=== PATIENT | female | born 1935 | race Caucasian/White ===

== ENCOUNTER 2016-06-21 08:33 | Outpatient (CLI) | payer MEDICARE ==
--- NOTE | 2016-06-21 11:54 | Fluoroscopy Report ---
MODIFIED BARIUM SWALLOW Findings: Fluoroscopy was provided by the radiologist for speech therapy to assess the swallowing mechanism. Please refer to the formal report by speech therapy. Impression: Successful modified barium swallow.
== END 2016-06-21 08:34 | disposition home or self-care (01) ==
LOC: PT 08:33
PROVIDERS: ATTEND Internal Medicine Critical Care Medicine
DX: R13.12 Dysphagia, oropharyngeal phase (principal)
CPT/HCPCS: 74230; 92611; G8996; G8997; G8998

== ENCOUNTER 2016-07-24 13:53 | Outpatient (CLI) | payer MEDICARE ==
--- NOTE | 2016-07-25 07:54 | Cat Scan Report ---
CT CHEST WITHOUT CONTRAST: HISTORY: Chronic right, shortness of breath. TECHNIQUE: Helical CT with sagittal and coronal reformatted images. FINDINGS: Compared to 09/30/15. There is mild cardiomegaly. No pericardial effusion is appreciated. Diffuse coronary artery calcifications. The mediastinal vessels trachea and esophagus are within normal limits. No mediastinal adenopathy has developed. Mild fibrotic changes are suspected in the lower lung zones. There appears to be scarring and volume loss in the middle lobe, lingula and portions of both lower lobes. This has improved slightly since 09/30/15 exam. The upper lung zones remain clear. There may be minimal emphysematous changes. No defined mass, pleural effusion or pneumothorax. The thoracic cage is intact. There is osteopenia and multilevel thoracic spondylosis. IMPRESSION: Mild cardiomegaly. Mild fibrotic changes are suspected in the lower lung zones. There are areas of atelectasis or scarring in the lower lung zones have improved slightly since the previous exam. No acute cardiopulmonary process is appreciated.
== END 2016-07-24 13:54 | disposition home or self-care (01) ==
LOC: CT 13:53
PROVIDERS: ATTEND Specialist
DX: J96.11 Chronic respiratory failure with hypoxia (principal); I25.10 Atherosclerotic heart disease of native coronary artery without angina pectoris; I51.7 Cardiomegaly; M85.80 Other specified disorders of bone density and structure, unspecified site; M47.894 Other spondylosis, thoracic region
CPT/HCPCS: 36415; 71250; 82565; 84520

== ENCOUNTER 2017-02-20 16:39 | Emergency (ER) | payer MEDICARE ==
[2017-02-20 17:45] VITALS: BP 129/58
[2017-02-20 18:22] LABS: Basophils % (Auto) 0.5 % (0.0-1.8); Eosinophils % (Auto) 0.8 % (0.0-4.3); Hematocrit 32.3 % (30.3-42.9); Hemoglobin 10.7 gm/dl (10.1-14.3); Mean Corpuscular HGB Conc 33 % (30-34); Mean Corpuscular Volume 73 fl (79-97); Platelet Count 100 K/mm3 (140-440); Red Cell Distribution Width 18.6 % (13.2-15.2); White Blood Count 8.5 K/mm3 (4.5-11.0)
[2017-02-20 18:26] LABS: Mean Corpuscular Hemoglobin 24 pg (28-32)
--- NOTE | 2017-02-20 18:30 | Emergency Department Report ---
HPI - General Chief Complaint: Medical Clearance Time Seen by Provider: 02/20/17 17:48 - HPI HPI: This is a 81-year-old female presents to the emergency department via EMS with complaint of weakness, dizziness and some hypotension. The patient completed her dialysis and her was driving her home when she started having the symptoms. He pulled over and called EMS. EMS found the blood pressure be in normal at that time and she didn't receive any other treatment prior to presentation. She has a past medical history of diabetes, coronary artery disease, hypertension and end-stage renal disease on dialysis Saturday, , Saturday. ED Past Medical Hx - Past Medical History Hx Hypertension: Yes Hx Heart Attack/AMI: Yes Hx Diabetes: Yes Hx Renal Disease: Yes (Dialysis MWF) - Surgical History Hx Coronary Stent: Yes (Status post cardiac cath, 12/24/2014 stent to distal left main) Additional Surgical History: UNKNOWN - Social History Smoking Status: Never Smoker Substance Use Type: None - Medications Home Medications: Home Medications Medication Instructions Recorded Confirmed Last Taken Type Aspirin EC [Aspirin Enteric Coated 81 mg PO QDAY 09/14/14 09/30/15 09/29/15 History TAB] hydrALAZINE [Apresoline TAB] 25 mg PO BID #60 tablet 12/27/14 09/30/15 09/29/15 Rx AtorvaSTATin [Lipitor] 10 mg PO QHS 09/30/15 09/30/15 09/29/15 History Calcium Acetate [Phoslo] 2,001 mg PO TID 09/30/15 09/30/15 09/29/15 History Clopidogrel [Plavix] 75 mg PO QDAY 09/30/15 09/30/15 09/29/15 History Amoxicillin/K Clav Tab [Augmentin 1 tab PO Q12HR #10 tab 10/04/15 Unknown Rx 875 mg] Carvedilol [Coreg] 3.125 mg PO BID #60 tablet 10/04/15 Unknown Rx Sitagliptin Phosphate [Januvia] 50 mg PO QDAY #30 tablet 10/04/15 Unknown Rx ED Review of Systems ROS: Stated complaint: GENERAL WEAKNESS/DIZZY Other details as noted in HPI Comment: All other systems reviewed and negative Constitutional: weakness. denies: fever Eyes: denies: eye pain, eye discharge, vision change ENT: denies: ear pain, throat pain Respiratory: denies: cough, shortness of breath, wheezing Cardiovascular: denies: chest pain, palpitations Gastrointestinal: denies: abdominal pain, nausea, diarrhea Genitourinary: denies: urgency, dysuria, discharge Musculoskeletal: denies: back pain, joint swelling, arthralgia Skin: denies: rash, lesions Neurological: weakness, other (dizziness). denies: headache Physical Exam - Physical Exam Vital Signs: Vital Signs 02/20/17 02/20/17 02/20/17 17:06 17:08 17:44 Temperature 98.1 F Pulse Rate 70 73 Respiratory 20 15 Rate Blood Pressure 154/58 129/58 [Left] O2 Sat by Pulse 100 100 100 Oximetry Physical Exam: GENERAL: The patient is well-developed well-nourished. HENT: Normocephalic. Atraumatic. Patient has moist mucous membranes. EYES: Extraocular motions are intact. Patient is blind. NECK: Supple. Trachea is midline. CHEST/LUNGS: Clear to auscultation. There is no respiratory distress noted. HEART/CARDIOVASCULAR: Regular. There is no tachycardia. There is no gallop rub or murmur. ABDOMEN: Abdomen is soft, nontender. Patient has normal bowel sounds. There is no abdominal distention. SKIN: Skin is warm and dry. NEURO: The patient is awake, alert. The patient is cooperative. The patient has no acute focal neurologic deficits. MUSCULOSKELETAL: There is no tenderness or deformity. There is no limitation range of motion. There is no evidence of acute injury. ED Course Vital Signs 02/20/17 02/20/17 02/20/17 17:06 17:08 17:44 Temperature 98.1 F Pulse Rate 70 73 Respiratory 20 15 Rate Blood Pressure 154/58 129/58 [Left] O2 Sat by Pulse 100 100 100 Oximetry ED Medical Decision Making - Lab Data Result diagrams: 02/20/17 18:00 02/20/17 18:00 - EKG Data -: EKG Interpreted by Me EKG shows normal: sinus rhythm, axis, intervals, QRS complexes (RBBB), ST-T waves Rate: normal - EKG Data When compared to previous EKG there are: no significant change Interpretation: unchanged when compared t (12/20/11) - Radiology Data Radiology results: report reviewed, image reviewed interpreted by me: Chest x-ray does not show any acute process. There are no pleural effusions, obvious pneumonia and there is no pneumothorax. EXAM: CT HEAD/BRAIN WO CON HISTORY: Dizziness, weak TECHNIQUE: Contiguous axial images of the head were obtained without the use of intravenous contrast. PRIORS: None. FINDINGS: There is encephalomalacia of the left frontal lobe consistent with an old infarct. There is a very small lacunar infarct in the right basal ganglia. There is no evidence of acute infarct or intracranial hemorrhage. There is no mass lesion or mass effect. There are no abnormal extra-axial fluid collections. The ventricles and sulci are prominent consistent with generalized loss of brain substance, appropriate for age. There is deep white matter lucency consistent with chronic microvascular ischemic disease. There is advanced atherosclerotic calcification in the bilateral vertebral arteries and bilateral supraclinoid internal carotid arteries. The visualized skull and orbits are unremarkable. The visualized paranasal sinuses are clear. IMPRESSION: 1. No evidence of acute infarct or intracranial hemorrhage. 2. White matter lucency consistent with chronic microvascular ischemic disease. 3. 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 - Medical Decision Making 81-year-old female presents to the emergency department after she had some nonspecific weakness, dizziness and some questionable hypotension status post dialysis today. EKG did not show any signs of ST elevation [place] or dysrhythmia. CT of the head did not show any bleed, shift, mass or any acute intracranial process. Labs were mostly unremarkable except for the renal insufficiency, but the patient is on hemodialysis. She did have some very slight hyperkalemia with potassium 5.1. Vital signs stable throughout ED course. The patient was reevaluated multiple times of hours and says she is feeling a lot better, asking for something to eat, and asking for discharge home. Prior to discharge , the patient was able to display the ability to ambulate throughout the emergency department without any instability. She will return to the ER with any worsening of her symptoms or any acute distress. There are no focal, motor or sensory deficits. Critical Care Time: No Critical care attestation.: If time is entered above; I have spent that time in minutes in the direct care of this critically ill patient, excluding procedure time. ED Disposition Clinical Impression: ESRD (end stage renal disease), Dizziness, Weakness Disposition: DC-01 TO HOME OR SELFCARE Is pt being admited?: No Condition: Stable Instructions: Chronic Kidney Disease (ED), Weakness (ED), Dizziness (ED) Additional Instructions: Please follow-up with your primary care physician in the next few days. Continue with your normal dialysis regimen. Return to the emergency Department with any worsening of your symptoms are any acute distress. Referrals: PRIMARY CARE, [Primary Care Provider] - [facility] Time of Disposition: 20:08
[2017-02-20 18:45] LABS: Albumin 3.9 g/dL (3.9-5); Bilirubin,Total 0.8 mg/dL (0.1-1.2); Calcium 8.4 mg/dL (8.4-10.2); Chloride 90.8 mmol/L (98-107); Potassium 5.1 mmol/L (3.6-5.0); Total Protein 7.9 g/dL (6.3-8.2)
--- NOTE | 2017-02-20 19:30 | Cat Scan Report ---
FINAL REPORT EXAM: CT HEAD/BRAIN WO CON HISTORY: Dizziness, weak TECHNIQUE: Contiguous axial images of the head were obtained without the use of intravenous contrast. PRIORS: None. FINDINGS: There is encephalomalacia of the left frontal lobe consistent with an old infarct. There is a very small lacunar infarct in the right basal ganglia. There is no evidence of acute infarct or intracranial hemorrhage. There is no mass lesion or mass effect. There are no abnormal extra-axial fluid collections. The ventricles and sulci are prominent consistent with generalized loss of brain substance, appropriate for age. There is deep white matter lucency consistent with chronic microvascular ischemic disease. There is advanced atherosclerotic calcification in the bilateral vertebral arteries and bilateral supraclinoid internal carotid arteries. The visualized skull and orbits are unremarkable. The visualized paranasal sinuses are clear. IMPRESSION: 1. No evidence of acute infarct or intracranial hemorrhage. 2. White matter lucency consistent with chronic microvascular ischemic disease. 3. 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
--- NOTE | 2017-02-21 07:58 | XRay Report ---
AP CHEST: HISTORY: Weakness, shortness of breath Heart size and pulmonary venous structures are borderline. Trace left pleural effusion or left basilar atelectasis is suspected. No large consolidation or pneumothorax. The bony structures are demineralized. IMPRESSION: Correlate for mild CHF.
== END 2017-02-20 20:45 | disposition home or self-care (01) ==
LOC: ED 16:39
DX: I12.0 Hypertensive chronic kidney disease with stage 5 chronic kidney disease or end stage renal disease (principal); R42 Dizziness and giddiness; R43.1 Parosmia; E11.22 Type 2 diabetes mellitus with diabetic chronic kidney disease; N18.6 End stage renal disease; I25.2 Old myocardial infarction; Z79.82 Long term (current) use of aspirin
CPT/HCPCS: 36415; 70450; 71010; 80053; 82140; 84443; 85025; 93005; 93010

== ENCOUNTER 2018-11-20 08:54 | Outpatient (CLI) | payer MEDICARE ==
[2018-11-20 09:58] LABS: Hematocrit 35.7 % (30.3-42.9); Mean Corpuscular HGB Conc 34 % (30-34); Mean Corpuscular Volume 76 fl (79-97); Platelet Count 129 K/mm3 (140-440); Red Blood Count 4.71 M/mm3 (3.65-5.03); Red Cell Distribution Width 17.4 % (13.2-15.2)
[2018-11-20 10:13] LABS: Albumin 3.6 g/dL (3.9-5); Calcium 8.5 mg/dL (8.4-10.2)
[2018-11-20 10:50] LABS: Chol/HDL Ratio 2.9 %
== END 2018-11-20 08:55 | disposition home or self-care (01) ==
LOC: LAB 08:54
PROVIDERS: ATTEND Internal Medicine
DX: E11.22 Type 2 diabetes mellitus with diabetic chronic kidney disease (principal); I12.0 Hypertensive chronic kidney disease with stage 5 chronic kidney disease or end stage renal disease; N18.6 End stage renal disease; E78.5 Hyperlipidemia, unspecified; Z90.710 Acquired absence of both cervix and uterus
CPT/HCPCS: 36415; 80053; 80061; 83036; 85027

== ENCOUNTER 2019-05-01 09:06 | Outpatient (CLI) | payer MEDICARE ==
[2019-05-01 12:55] LABS: Bacteria,Urine 1+ /HPF (Negative); Bilirubin,Urine NEG (Negative); Blood,Urine SM (Negative); Color,Urine Yellow (Yellow); Urobilinogen,Urine < 2.0 mg/dL (<2.0); WBC,Urine < 1.0 /HPF (0.0-6.0)
== END 2019-05-01 09:07 | disposition home or self-care (01) ==
LOC: LAB 09:06
PROVIDERS: ATTEND Internal Medicine
DX: N39.0 Urinary tract infection, site not specified (principal)
CPT/HCPCS: 81001

== ENCOUNTER 2021-02-21 10:59 | Outpatient (CLI) | payer MEDICARE ==
[2021-02-21 12:00] LABS: Basophils % (Auto) 0.6 % (0.0-1.8); Eosinophils # (Auto) 0.2 K/mm3 (0.0-0.4); Eosinophils % (Auto) 4.3 % (0.0-4.3); Hematocrit 27.8 % (30.3-42.9); Hemoglobin 9.4 gm/dl (10.1-14.3); Lymphocytes # (Auto) 1.3 K/mm3 (1.2-5.4); Lymphocytes % (Auto) 25.1 % (13.4-35.0); Mean Corpuscular HGB Conc 34 % (30-34); Mean Corpuscular Volume 76 fl (79-97); Monocytes # (Auto) 0.7 K/mm3 (0.0-0.8); Monocytes % (Auto) 13.9 % (0.0-7.3); Platelet Count 199 K/mm3 (140-440); Red Blood Count 3.64 M/mm3 (3.65-5.03); Red Cell Distribution Width 19.6 % (13.2-15.2)
[2021-02-21 12:19] LABS: Alanine Aminotransferase 54 units/L (7-56); Albumin 3.2 g/dL (3.9-5); Blood Urea Nitrogen 38 mg/dL (7-17); Calcium 8.5 mg/dL (8.4-10.2)
[2021-02-21 12:24] LABS: BUN/Creatinine Ratio 7
--- NOTE | 2021-02-21 13:23 | XRay Report ---
CHEST 2 VIEWS INDICATION / CLINICAL INFORMATION: OTHER CHEST PAIN. COMPARISON: 02/20/2017 FINDINGS: SUPPORT DEVICES: None. HEART / MEDIASTINUM: No significant abnormality. LUNGS / PLEURA: Lung volumes are low with bibasilar chronic appearing interstitial opacities which agee ve mildly worsened since prior study. ADDITIONAL FINDINGS: No significant additional findings. IMPRESSION: 1. Mildly worsened chronic interstitial lung disease compared with 06/23/2016. Signer Name: Helio Bauer MD Signed: 02/21/2021 1:18 PM Workstation Name: [id number]
== END 2021-02-21 11:00 | disposition home or self-care (01) ==
LOC: XRAY 10:59
PROVIDERS: ATTEND Internal Medicine
DX: R07.89 Other chest pain (principal); D69.6 Thrombocytopenia, unspecified
CPT/HCPCS: 36415; 71046; 80053; 85025

== ENCOUNTER 2021-03-21 09:57 | Outpatient (CLI) | payer MEDICARE ==
[2021-03-21 10:46] LABS: Basophils % (Auto) 1.3 % (0.0-1.8); Eosinophils # (Auto) 0.2 K/mm3 (0.0-0.4); Eosinophils % (Auto) 5.6 % (0.0-4.3); Hematocrit 36.5 % (30.3-42.9); Hemoglobin 11.6 gm/dl (10.1-14.3); Lymphocytes # (Auto) 1.1 K/mm3 (1.2-5.4); Mean Corpuscular HGB Conc 32 % (30-34); Mean Corpuscular Volume 78 fl (79-97); Monocytes # (Auto) 0.4 K/mm3 (0.0-0.8); Monocytes % (Auto) 11.2 % (0.0-7.3); Platelet Count 230 K/mm3 (140-440); Red Blood Count 4.66 M/mm3 (3.65-5.03)
[2021-03-21 11:01] LABS: Red Cell Distribution Width 20.4 % (13.2-15.2)
[2021-03-21 12:00] LABS: Albumin 3.3 g/dL (3.9-5); Calcium 8.6 mg/dL (8.4-10.2); Chol/HDL Ratio 4.38 %
[2021-03-21 15:18] LABS: Creatinine,Urine 117.1 mg/dL (0.1-20.0)
[2021-03-21 15:33] LABS: Microalbumin/Creatinine Ratio 1932.5 ug/mg
== END 2021-03-21 09:58 | disposition home or self-care (01) ==
LOC: LAB 09:57
PROVIDERS: ATTEND Internal Medicine
DX: I12.0 Hypertensive chronic kidney disease with stage 5 chronic kidney disease or end stage renal disease (principal); E11.40 Type 2 diabetes mellitus with diabetic neuropathy, unspecified; N18.6 End stage renal disease; Z00.00 Encounter for general adult medical examination without abnormal findings; R94.5 Abnormal results of liver function studies; R53.83 Other fatigue
CPT/HCPCS: 36415; 80053; 80061; 82043; 83036; 84443; 85025

== ENCOUNTER 2021-04-04 13:03 | Emergency (ER) | payer MEDICARE ==
--- NOTE | 2021-04-04 13:30 | Emergency Department Report ---
ED Head Trauma HPI - General Chief complaint: Head Injury Stated complaint: FALL Time Seen by Provider: 04/04/21 13:17 Source: patient Mode of arrival: Ambulatory Limitations: No Limitations - History of Present Illness Initial comments: 85-year-old female, presents to ED following fall at home. Daughter states patient was sitting in a small chair that was only approximately 1 foot high from the ground. The chair broke, patient fell backwards. Denies LOC. Patient is not on any blood thinners. Patient takes aspirin. Patient complains of some mild right-sided neck pain. Patient also has some contusions on the back of her head. Complaint: head injury -: hour(s) (1) Mechanism of Injury: mechanical fall Location: occipital Loss of Consciousness: no Place: home Severity: mild Quality: aching Consistency: constant Other Injuries: neck Context: on Aspirin Associated Symptoms: neck pain. denies: nausea, vomiting - Related Data Home Medications Medication Instructions Recorded Confirmed Last Taken Aspirin EC [Halfprin EC] 81 mg PO QDAY 09/14/14 09/30/15 09/29/15 AtorvaSTATin [Lipitor] 10 mg PO QHS 09/30/15 09/30/15 09/29/15 Calcium Acetate [Phoslo] 2,001 mg PO TID 09/30/15 09/30/15 09/29/15 Clopidogrel [Plavix] 75 mg PO QDAY 09/30/15 09/30/15 09/29/15 Previous Rx's Medication Instructions Recorded Last Taken Type hydrALAZINE [Apresoline TAB] 25 mg PO BID #60 tablet 12/27/14 09/29/15 Rx Amoxicillin/K Clav Tab [Augmentin 1 tab PO Q12HR #10 tab 10/04/15 Unknown Rx 875 mg] Sitagliptin Phosphate [Januvia] 50 mg PO QDAY #30 tablet 10/04/15 Unknown Rx carvediloL [Coreg] 3.125 mg PO BID #60 tablet 10/04/15 Unknown Rx Allergies/Adverse reactions: Allergies Allergy/AdvReac Type Severity Reaction Status Date / Time No Known Allergies Allergy Verified 09/14/14 13:14 ED Review of Systems ROS: Stated complaint: FALL Other details as noted in HPI Comment: All other systems reviewed and negative Musculoskeletal: as per HPI. denies: back pain Neurological: headache. denies: weakness, numbness ED Past Medical Hx - Past Medical History Hx Hypertension: Yes Hx Heart Attack/AMI: Yes Hx Diabetes: Yes Hx Renal Disease: Yes (Dialysis MWF) - Surgical History Hx Coronary Stent: Yes (Status post cardiac cath, 12/24/2014 stent to distal left main) Additional Surgical History: UNKNOWN - Social History Smoking Status: Never Smoker Substance Use Type: None - Medications Home Medications: Home Medications Medication Instructions Recorded Confirmed Last Taken Type Aspirin EC [Halfprin EC] 81 mg PO QDAY 09/14/14 09/30/15 09/29/15 History hydrALAZINE [Apresoline TAB] 25 mg PO BID #60 tablet 12/27/14 09/30/15 09/29/15 Rx AtorvaSTATin [Lipitor] 10 mg PO QHS 09/30/15 09/30/15 09/29/15 History Calcium Acetate [Phoslo] 2,001 mg PO TID 09/30/15 09/30/15 09/29/15 History Clopidogrel [Plavix] 75 mg PO QDAY 09/30/15 09/30/15 09/29/15 History Amoxicillin/K Clav Tab [Augmentin 1 tab PO Q12HR #10 tab 10/04/15 Unknown Rx 875 mg] Sitagliptin Phosphate [Januvia] 50 mg PO QDAY #30 tablet 10/04/15 Unknown Rx carvediloL [Coreg] 3.125 mg PO BID #60 tablet 10/04/15 Unknown Rx ED Physical Exam - General Limitations: No Limitations General appearance: alert, in no apparent distress - Head Head exam: Present: other (Small hematoma on the back of patient's head) - Eye Eye exam: Present: normal appearance, PERRL, EOMI - ENT ENT exam: Present: mucous membranes moist - Neck Neck exam: Present: normal inspection, tenderness (Right paraspinal posterior cervical) - Respiratory Respiratory exam: Present: normal lung sounds bilaterally. Absent: respiratory distress - Cardiovascular Cardiovascular Exam: Present: regular rate, normal rhythm - GI/Abdominal GI/Abdominal exam: Present: soft. Absent: distended, tenderness - Extremities Exam Extremities exam: Present: normal inspection. Absent: tenderness - Back Exam Back exam: Present: normal inspection. Absent: paraspinal tenderness, vertebral tenderness - Neurological Exam Neurological exam: Present: alert, oriented X3 - Psychiatric Psychiatric exam: Present: normal affect, normal mood - Skin Skin exam: Present: warm, dry, intact, normal color ED Course Vital Signs 04/04/21 04/04/21 13:11 15:15 Temperature 97.8 F 97.3 F L Pulse Rate 87 82 Respiratory 16 16 Rate Blood Pressure 167/62 Blood Pressure 172/70 [Left] O2 Sat by Pulse 100 100 Oximetry - Radiology Data Radiology results: report reviewed, image reviewed - Medical Decision Making CT head and C-spine negative for any acute findings. No neuro deficits on exam. Patient will be discharged at this time. Outpatient follow-up advised, return precautions given. - Differential Diagnosis Contusion, sprain, fracture, intracranial abnormality Critical care attestation.: If time is entered above; I have spent that time in minutes in the direct care of this critically ill patient, excluding procedure time. ED Disposition Clinical Impression: Fall, Closed head injury, Acute cervical myofascial strain Disposition: 01 HOME / SELF CARE / HOMELESS Is pt being admited?: No Condition: Stable Instructions: Cervical Sprain, Head Injury, Adult, [id number] Referrals: PRIMARY CARE, [Primary Care Provider] - 3-5 Days Time of Disposition: 14:33
[2021-04-04] MEDS ORDERED: IBUPROFEN 400 MG TAB PO ONE (14:24)
--- NOTE | 2021-04-04 14:24 | Cat Scan Report ---
CT head/brain wo con, CT cervical spine wo con INDICATION: fall. TECHNIQUE: CT head and cervical spine without contrast. All CT scans at this location are performed u sing CT dose reduction for ALARA by means of automated exposure control. COMPARISON: None. FINDINGS: HEAD: Intracranial: Left frontal encephalomalacia from remote infarction. Ruggiero-white matter differentiation is maintained. No intracranial hemorrhage. No extra axial collection.. No hydrocephalus. No herniati on. Sinuses: Paranasal sinuses and mastoid air cells are essentially clear. Orbits: Globes are intact Calvarium: No acute fracture. CERVICAL: Alignment: Normal alignment. Vertebrae: No fracture. Vertebral body heights are preserved. C1 and C2 are congruent. Atlantooccipi kathleen joint is maintained. Spondylolysis: No significant spondylosis. Soft tissues: No prevertebral soft tissue thickening. Additional findings: 2 cm right hypoattenuating thyroid nodule. Atherosclerosis in the carotid bulbs. IMPRESSION: 1. No acute intracranial abnormality. 2.No cervical spine fracture. 3. Nonspecific 2 cm right thyroid nodule. There is a common finding but can consider dedicated thyroi d ultrasound if indicated given patient's age. Signer Name: Juan Juares MD Signed: 04/04/2021 2:20 PM Workstation Name: [id number]
[2021-04-04 15:21] VITALS: BP 172/70
== END 2021-04-04 15:21 | disposition home or self-care (01) ==
LOC: ED 13:03
DX: S16.1XXA Strain of muscle, fascia and tendon at neck level, initial encounter (principal); S09.90XA Unspecified injury of head, initial encounter; I10 Essential (primary) hypertension; W18.39XA Other fall on same level, initial encounter; Y93.89 Activity, other specified; Y92.89 Other specified places as the place of occurrence of the external cause; Y99.8 Other external cause status
CPT/HCPCS: 70450; 72125; 99283

== ENCOUNTER 2021-11-14 11:41 | Outpatient (CLI) | payer MEDICARE ==
[2021-11-14 16:21] LABS: Basophils # (Auto) 0.1 K/mm3 (0.0-0.1); Basophils % (Auto) 1.8 % (0.0-1.8); Eosinophils # (Auto) 0.3 K/mm3 (0.0-0.4); Eosinophils % (Auto) 5.5 % (0.0-4.3); Hematocrit 35.3 % (30.3-42.9); Hemoglobin 11.3 gm/dl (10.1-14.3); Lymphocytes # (Auto) 1.3 K/mm3 (1.2-5.4); Lymphocytes % (Auto) 24.7 % (13.4-35.0); Mean Corpuscular HGB Conc 32 % (30-34); Mean Corpuscular Volume 78 fl (79-97); Monocytes # (Auto) 0.5 K/mm3 (0.0-0.8); Monocytes % (Auto) 10.3 % (0.0-7.3); Platelet Count 167 K/mm3 (140-440); Red Blood Count 4.51 M/mm3 (3.65-5.03); Red Cell Distribution Width 18.8 % (13.2-15.2)
[2021-11-14 16:45] LABS: Albumin 4.3 g/dL (3.9-5); Calcium 8.8 mg/dL (8.4-10.2)
== END 2021-11-14 11:42 | disposition home or self-care (01) ==
LOC: LABHHL 11:41
PROVIDERS: ATTEND Internal Medicine
DX: E11.22 Type 2 diabetes mellitus with diabetic chronic kidney disease (principal); E53.8 Deficiency of other specified B group vitamins; N18.6 End stage renal disease
CPT/HCPCS: 36415; 80053; 82607; 83036; 84100; 85025